=== PATIENT | female | born 1995 | race Two or more races ===

== ENCOUNTER 2020-02-23 06:28 | Inpatient (IN) | payer SELFPAY ==
[~2020-02-23] VITALS: Ht 157.5 cm; Wt 63.5 kg
[2020-02-23] MEDS ORDERED: IV RINGERS,LACTATED 1000ML 1,000 ML IV PRN (07:15)
[2020-02-23 07:20] LABS: BILIRUBIN,URINE NEGATIVE (NEG); CLARITY,URINE CLEAR; COLOR,URINE YELLOW; NITRITE,URINE NEGATIVE (NEG); PROTEIN,URINE NEGATIVE (NEG-TRACE)
[2020-02-23 07:25] LABS: BARBITURATES NEG (NEG); BENZODIAZEPINES NEG (NEG); CANNABINOIDS NEG (NEG); COCAINE NEG (NEG); METHADONE NEG (NEG); OPIATES NEG (NEG); PHENCYCLIDINE NEG (NEG)
[2020-02-23 07:40] VITALS: BP 102/63
[2020-02-23 07:40] LABS: AMPHETAMINE/METHAMPHETAMINE NEG (NEG)
[2020-02-23 07:55] LABS: BACTERIA,URINE FEW /HPF (0-FEW); SQUAMOUS EPITHELIAL CELL,UR MANY /LPF; WBC,URINE 20-40 /HPF (0-4)
[2020-02-23] MEDS ORDERED: TERBUTALINE 1 MG/ML VIAL. SQ PRN (08:30)
[2020-02-23] MEDS ORDERED: OXYTOCIN 30 UNIT/500 ML PREMIX 500 ML IV PRN ×3 (08:30→18:00)
[2020-02-23] MEDS ORDERED: LIDOCAINE 1% PF 30 ML VIAL. INJ PRN (08:30)
[2020-02-23] MEDS ORDERED: IBUPROFEN 400 MG TABLET. PO PRN (08:30)
[2020-02-23] MEDS ORDERED: 0.9 % SODIUM CHLORIDE 10 ML DISP.SYRIN. IV PRN ×2 (08:30→18:00)
[2020-02-23] MEDS: IV RINGERS,LACTATED 1000ML 1,000 ML IV SCH ×3 (08:32→22:09)
[2020-02-23 09:39] LABS: BASO % 0 % (0-3); EOS # 0.1 x10^3/uL (0.0-0.7); EOS % 1 % (0-3); HEMATOCRIT 32.1 % (36.0-47.0); HEMOGLOBIN 10.4 g/dL (12.0-15.5); LYMPH % 20 % (24-48); MEAN CORPUSCULAR HEMOGLOBIN 28 pg (25-35); MEAN CORPUSCULAR HGB CONC 33 g/dL (31-37); MEAN CORPUSCULAR VOLUME 85 fL (79-100); MONO # 0.7 x10^3/uL (0.0-1.1); MONO % 7 % (0-9); NEUT # 7.4 x10^3/uL (1.8-7.7); NEUT % 73 % (31-73); PLATELET COUNT 286 x10^3/uL (140-400); RED BLOOD COUNT 3.76 x10^6/uL (3.50-5.40); RED CELL DISTRIBUTION WIDTH 16.6 % (11.5-14.5); WHITE BLOOD COUNT 10.2 x10^3/uL (4.0-11.0)
--- NOTE | 2020-02-23 09:43 | PDOC1 ---
OB - History Hx of Present Care: Good Care Ultrasounds: Normal mid trimester US Obstetrical Complications: None Medical Complications: None Past Family/Social History * Past Medical, Surgical, Family and Obstetric Histories reviewed from chart. Rubella: Immune RPR/VDRL: Negative GBS Status: Negative HBsAG: Negative OB - Chief Complaint & HPI Date of Admission: Date of Admission: February 23, 2020 at 06:28 Chief Complaint/History : 2 Para: 1 EGA: 41 Reason for admission: active labor Admission Nurse Assessment Rev: Yes OB - Admission Exam Physical Exam Vitals: VS - Last 72 Hours, by Label Date Time Temp Pulse Resp B/P (MAP) Pulse Ox O2 Delivery O2 Flow Rate FiO2 02/23/20 07:40 98.8 75 18 102/63 (76) 98 98.8 HEENT: Normal Heart: Regular Rate Lungs: Clear Abdomen: Gravid, Non tender, Soft Extremities: Edema Reflexes: Normal Cervical Dilatation: 5cm Effacement: 75% Station: -2 Membranes: Intact Heart Rate: Normal Accelerations: Accelerations Present Decelerations: No decelerations Contractions on Admission: < 5 Minutes Apart Intensity: Moderate Text A: 41 wks IUP Active labor P: Admit labor management. LYNDSEY BURDICK Jr, MD February 23, 2020 09:43
[2020-02-23] MEDS: fentaNYL PF VIAL 100 MCG/2 ML VIAL IVP PRN ×2 (11:22→16:26)
[2020-02-23] MEDS ORDERED: CITRIC ACID/SODIUM CITRATE 30 ML SOLUTION. PO ONE (16:45)
[2020-02-23] MEDS ORDERED: fentaNYL PF VIAL 100 MCG/2 ML VIAL ONE ×2 (16:47→17:29)
[2020-02-23] MEDS ORDERED: ONDANSETRON PF 4 MG/2 ML VIAL. ONE (16:47)
[2020-02-23] MEDS ORDERED: OXYTOCIN 10 UNIT/ML VIAL. ONE ×5 (16:47→17:37)
[2020-02-23] MEDS ORDERED: DEXAMETHASONE SOD PHOS 4 MG/ML VIAL ONE (16:47)
[2020-02-23] MEDS ORDERED: ePHEDrine PF IN SALINE 50 MG/10 ML SYRINGE. IV ONE (16:48)
[2020-02-23] MEDS ORDERED: KETOROLAC 30 MG/ML VIAL. IV PRN ×2 (17:15→18:00)
[2020-02-23] MEDS ORDERED: PHENYLEPHRINE in 0.9% NACL PF 1 MG/10 ML SYRINGE. IV ONE (17:28)
--- NOTE | 2020-02-23 17:58 | PDOC4 ---
OB Operative Note Date: February 23, 2020 PRE OP DIAGNOSIS: NRFHT POST OP DIAGNOSIS: NRFHT OPERATION PERFORMED: L [facility] Surgeon Dr. Knutson Anesthesia: Gen Blood Loss 700 ml Specimen placenta and OB Findings: Position (Vertex), Sex (Female), (8/9), Weight (7 Lb 11 oz), Nuchal Cord (x1) Complications none Additional Remarks pt. LYNDSEY Pedraza Jr, MD February 23, 2020 17:58
[2020-02-23] MEDS: IV NORMAL SALINE 1000ML BAG 1,000 ML IV SCH (17:59)
[2020-02-23] MEDS ORDERED: diphenhydrAMINE ORAL ELIXIR 12.5 MG/5 ML ML PO PRN (18:00)
[2020-02-23] MEDS ORDERED: oxyCODONE/APAP 5/325 1 TAB TABLET PO PRN (18:00)
[2020-02-23] MEDS ORDERED: NALOXONE 0.4 MG/ML VIAL. IV PRN (18:00)
[2020-02-23] MEDS ORDERED: ZOLPIDEM 5 MG TABLET. PO PRN (18:00)
[2020-02-23] MEDS ORDERED: SIMETHICONE 80 MG TAB.CHEW PO PRN (18:00)
[2020-02-23] MEDS ORDERED: MAG HYDROX/ALUMINUM HYD/SIMETH 30 ML ORAL.SUSP PO PRN (18:00)
[2020-02-23] MEDS ORDERED: ONDANSETRON PF 4 MG/2 ML VIAL. IV PRN (18:00)
--- NOTE | 2020-02-23 18:49 | OP ---
DATE OF SURGERY: 02/23/2020 PREOPERATIVE DIAGNOSES: 1. A 41 weeks' intrauterine . 2. intolerance to labor. POSTOPERATIVE DIAGNOSES: 1. A 41 weeks' intrauterine . 2. intolerance to labor. PROCEDURE: Primary low transverse section. SURGEON: Lyndsey Knutson M.D. ANESTHESIA: GETA. ESTIMATED BLOOD LOSS: 700 mL. COMPLICATIONS: None. FINDINGS: Viable female infant, Apgars 8 and 9, weight 7 pounds 11 ounces, nuchal x 1. SUMMARY: This 24-year-old 2, para 1 at 41 weeks presented for active labor. The patient dilated up to 8 cm, then began having intolerance of labor and required emergency . She was counseled on the risks, benefits, and expectations and voiced clear understanding to proceed. DESCRIPTION OF PROCEDURE: The patient was taken to surgery suite and placed in dorsal supine position. She was prepped with ChloraPrep and draped in a sterile fashion. After adequate anesthesia, a Pfannenstiel skin incision was made with scalpel down to and through the fascia. Fascia was extended laterally using curved Huber scissors. The superior edge of fascia was grasped with two Alicia clamps and dissected free of the abdominal rectus muscle using a blunt dissection along with Bovie cautery. The same process took place inferiorly. Abdominal rectus muscle dissected bluntly at the midline. Peritoneum was grasped with 2 hemostats and entered sharply with Metzenbaum scissors. This incision was extended superiorly as well as inferiorly. The Regino ring retractor was placed. A low transverse hysterotomy incision was made with scalpel down to the . Hysterotomy incision was extended laterally and superiorly digitally. With the aid of fundal pressure, the 's head was delivered in a smooth atraumatic manner. Nuchal cord x 1 was visualized and reduced. With additional fundal pressure, the anterior shoulder was delivered followed by posterior shoulder. The rest of the female was delivered. The was suctioned with a bulb syringe orally and nasally, umbilical cord was clamped twice and cut. Viable female was handed to waiting nursing staff. Umbilical cord blood was then obtained. Three-vessel cord placenta was delivered manually intact. The uterus was then cleared of clot and debris with a moist lap. Hysterotomy incision was reapproximated using #1 Vicryl suture in running locked fashion. The imbricated layer was performed using #1 Vicryl suture in a running fashion. Three [id number] sutures were placed along the hysterotomy incision for better hemostasis. The uterus was palpated firm. Fallopian tubes and ovaries appeared normal bilaterally. Posterior cul-de-sac was cleared of clot and debris with a moist lap. Uterus was then returned to the abdomen. The pericolic gutters were cleared of clot and debris with a moist lap. Hysterotomy incision was reviewed and was hemostatic. The Regino ring retractor was removed. The peritoneum was reapproximated using #1 Vicryl suture in a running fashion. The abdominal rectus muscles were reapproximated using #1 Vicryl suture in an interrupted fashion. The fascia was reapproximated using 0 Vicryl suture in a running fashion. Skin was reapproximated using 4-0 Vicryl suture in a subcuticular manner. The patient tolerated the procedure well and was taken to recovery room in stable condition. Sponge and needle count correct x 3. LYNDSEY KNUTSON MD DR: ZIYAD/saroj JOB#: [id number] / [id number]
[2020-02-23 21:50] VITALS: BP 106/73
[2020-02-24 03:30] VITALS: BP 97/63
[2020-02-24 04:56] LABS: BASO % 0 % (0-3); EOS % 0 % (0-3); HEMATOCRIT 23.8 % (36.0-47.0); HEMOGLOBIN 7.7 g/dL (12.0-15.5); LYMPH # 1.7 x10^3/uL (1.0-4.8); LYMPH % 10 % (24-48); MEAN CORPUSCULAR HEMOGLOBIN 27 pg (25-35); MEAN CORPUSCULAR HGB CONC 32 g/dL (31-37); MEAN CORPUSCULAR VOLUME 85 fL (79-100); MONO % 6 % (0-9); NEUT # 14.4 x10^3/uL (1.8-7.7); NEUT % 85 % (31-73); PLATELET COUNT 226 x10^3/uL (140-400); RED BLOOD COUNT 2.81 x10^6/uL (3.50-5.40); RED CELL DISTRIBUTION WIDTH 16.7 % (11.5-14.5); WHITE BLOOD COUNT 17.1 x10^3/uL (4.0-11.0)
[2020-02-24] MEDS: IV RINGERS,LACTATED 1000ML 1,000 ML IV SCH ×2 (06:06→16:23)
[2020-02-24 06:24] LABS: % BANDS 6 % (0-9); % LYMPHS 6 % (24-48); % MONOS 3 % (0-10); % SEGS 85 % (35-66); PLT ESTIMATE ADEQUATE (ADEQUATE); TOXIC VACUOLATION SLIGHT
[2020-02-24] MEDS: FERROUS SULFATE 325 MG TABLET. PO SCH ×2 (08:54→18:44)
[2020-02-24] MEDS: IBUPROFEN 400 MG TABLET. PO PRN ×2 (08:54→19:35)
[2020-02-24] MEDS: DOCUSATE SODIUM 100 MG CAPSULE. PO PRN (08:54)
[2020-02-24] MEDS ORDERED: MULTIVITAMIN with MINERAL TABLET. PO SCH (09:00)
[2020-02-24 09:08] VITALS: BP 98/67
--- NOTE | 2020-02-24 16:26 | PDOC ---
OB Progress Note Date of Service 02/24/20 Time of Evaluation 1620 Notes Pt. feeling well. No complaints. Pain controlled. Lab Laboratory Tests Test 02/23/20 07:05 02/23/20 08:40 02/24/20 04:25 Urine Collection Type Unknown Urine Color Yellow Urine Clarity Clear Urine pH 7.0 (<5.0-8.0) Urine Specific [place] 1.015 (1.000-1.030) Urine Protein Negative mg/dL (NEG-TRACE) Urine Glucose (UA) Negative mg/dL (NEG) Urine Ketones (Stick) Negative mg/dL (NEG) Urine Blood Moderate (NEG) Urine Nitrite Negative (NEG) Urine Bilirubin Negative (NEG) Urine Urobilinogen Dipstick 1.0 mg/dL (0.2 mg/dL) Urine Leukocyte Esterase Moderate (NEG) Urine RBC 3-5 /HPF (0-2) Urine WBC 20-40 /HPF (0-4) Urine Squamous Epithelial Cells Many /LPF Urine Bacteria Few /HPF (0-FEW) Urine Opiates Screen Neg (NEG) Urine Methadone Screen Neg (NEG) Urine Barbiturates Neg (NEG) Urine Phencyclidine Screen Neg (NEG) Urine Amphetamine/Methamphetamine Neg (NEG) Urine Benzodiazepines Screen Neg (NEG) Urine Cocaine Screen Neg (NEG) Urine Cannabinoids Screen Neg (NEG) Urine Ethyl Alcohol Neg (NEG) White Blood Count 10.2 x10^3/uL (4.0-11.0) 17.1 x10^3/uL (4.0-11.0) Red Blood Count 3.76 x10^6/uL (3.50-5.40) 2.81 x10^6/uL (3.50-5.40) Hemoglobin 10.4 g/dL (12.0-15.5) 7.7 g/dL (12.0-15.5) Hematocrit 32.1 % (36.0-47.0) 23.8 % (36.0-47.0) Mean Corpuscular Volume 85 fL (79-100) 85 fL (79-100) Mean Corpuscular Hemoglobin 28 pg (25-35) 27 pg (25-35) Mean Corpuscular Hemoglobin Concent 33 g/dL (31-37) 32 g/dL (31-37) Red Cell Distribution Width 16.6 % (11.5-14.5) 16.7 % (11.5-14.5) Platelet Count 286 x10^3/uL (140-400) 226 x10^3/uL (140-400) Neutrophils (%) (Auto) 73 % (31-73) 85 % (31-73) Lymphocytes (%) (Auto) 20 % (24-48) 10 % (24-48) Monocytes (%) (Auto) 7 % (0-9) 6 % (0-9) Eosinophils (%) (Auto) 1 % (0-3) 0 % (0-3) Basophils (%) (Auto) 0 % (0-3) 0 % (0-3) Neutrophils # (Auto) 7.4 x10^3/uL (1.8-7.7) 14.4 x10^3/uL (1.8-7.7) Lymphocytes # (Auto) 2.0 x10^3/uL (1.0-4.8) 1.7 x10^3/uL (1.0-4.8) Monocytes # (Auto) 0.7 x10^3/uL (0.0-1.1) 1.0 x10^3/uL (0.0-1.1) Eosinophils # (Auto) 0.1 x10^3/uL (0.0-0.7) 0.0 x10^3/uL (0.0-0.7) Basophils # (Auto) 0.0 x10^3/uL (0.0-0.2) 0.0 x10^3/uL (0.0-0.2) Segmented Neutrophils % 85 % (35-66) Band Neutrophils % 6 % (0-9) Lymphocytes % 6 % (24-48) Monocytes % 3 % (0-10) Toxic Vacuolation Slight Platelet Estimate Adequate (ADEQUATE) Laboratory Tests Test 02/24/20 04:25 White Blood Count 17.1 x10^3/uL (4.0-11.0) Red Blood Count 2.81 x10^6/uL (3.50-5.40) Hemoglobin 7.7 g/dL (12.0-15.5) Hematocrit 23.8 % (36.0-47.0) Mean Corpuscular Volume 85 fL (79-100) Mean Corpuscular Hemoglobin 27 pg (25-35) Mean Corpuscular Hemoglobin Concent 32 g/dL (31-37) Red Cell Distribution Width 16.7 % (11.5-14.5) Platelet Count 226 x10^3/uL (140-400) Neutrophils (%) (Auto) 85 % (31-73) Lymphocytes (%) (Auto) 10 % (24-48) Monocytes (%) (Auto) 6 % (0-9) Eosinophils (%) (Auto) 0 % (0-3) Basophils (%) (Auto) 0 % (0-3) Neutrophils # (Auto) 14.4 x10^3/uL (1.8-7.7) Lymphocytes # (Auto) 1.7 x10^3/uL (1.0-4.8) Monocytes # (Auto) 1.0 x10^3/uL (0.0-1.1) Eosinophils # (Auto) 0.0 x10^3/uL (0.0-0.7) Basophils # (Auto) 0.0 x10^3/uL (0.0-0.2) Segmented Neutrophils % 85 % (35-66) Band Neutrophils % 6 % (0-9) Lymphocytes % 6 % (24-48) Monocytes % 3 % (0-10) Toxic Vacuolation Slight Platelet Estimate Adequate (ADEQUATE) Medications Current Medications Ringer's Solution 1,000 ml @ 125 mls/hr Q8H PRN IV hydration; Start 02/23/20 at 07:15 Sodium Chloride (Normal Saline Flush) 3 ml QSHIFT PRN IV AFTER MEDS AND BLOOD DRAWS; Start 02/23/20 at 08:30; Stop 02/23/20 at 18:18; Status DC Ringer's Solution 1,000 ml @ 125 mls/hr Q8H IV Last administered on 02/24/20at 06:06; Start 02/23/20 at 08:23 Terbutaline Sulfate (Brethine) 0.25 mg 1X PRN PRN SQ SEE COMMENTS; Start 02/23/20 at 08:30; Stop 02/24/20 at 08:29; Status DC Lidocaine HCl (Xylocaine 1% Pf 30ml Vial) 30 ml 1X PRN PRN INJ SEE COMMENTS; Start 02/23/20 at 08:30; Stop 02/25/20 at 08:29 Oxytocin/Sodium Chloride 500 ml @ 0 mls/hr CONT PRN IV SEE I/O RECORD Last administered on 02/23/20at 09:31; Start 02/23/20 at 08:30 Oxytocin/Sodium Chloride 500 ml @ 0 mls/hr CONT PRN PRN IV Post delivery bleeding; Start 02/23/20 at 08:30 Ibuprofen (Motrin) 800 mg PRN Q6HRS PRN PO INFLAMMATION; Start 02/23/20 at 08: 30; Stop 02/23/20 at 18:18; Status DC Fentanyl Citrate (Fentanyl 2ml Vial) 100 mcg PRN Q20MIN PRN IVP Labor pain Last administered on 02/23/20at 16:26; Start 02/23/20 at 11:15 Cefazolin Sodium/ Dextrose 50 ml @ 100 mls/hr 1X ONCE IV Last administered on 02/23/20at 16:53; Start 02/23/20 at 16:45; Stop 02/23/20 at 17:14; Status DC Citric Acid/ Sodium Citrate (Bicitra) 30 ml 1X ONCE PO Last administered on 02/23/20at 16:46; Start 02/23/20 at 16:45; Stop 02/23/20 at 16:49; Status DC Dexamethasone Sodium Phosphate (Decadron) 4 mg STK-MED ONCE .ROUTE ; Start 02/23/20 at 16:47; Stop 02/23/20 at 16:47; Status DC Ondansetron HCl (Zofran) 4 mg STK-MED ONCE .ROUTE ; Start 02/23/20 at 16:47; Stop 02/23/20 at 16:47; Status DC Fentanyl Citrate (Fentanyl 2ml Vial) 100 mcg STK-MED ONCE .ROUTE ; Start 02/23/20 at 16:47; Stop 02/23/20 at 16:47; Status DC Oxytocin (Pitocin) 10 unit STK-MED ONCE .ROUTE ; Start 02/23/20 at 16:47; Stop 02/23/20 at 16:48; Status DC Oxytocin (Pitocin) 10 unit STK-MED ONCE .ROUTE ; Start 02/23/20 at 16:47; Stop 02/23/20 at 16:48; Status DC Oxytocin (Pitocin) 10 unit STK-MED ONCE .ROUTE ; Start 02/23/20 at 16:47; Stop 02/23/20 at 16:48; Status DC Ephedrine Sulfate (ePHEDrine PF IN SALINE SYRINGE) 50 mg STK-MED ONCE IV ; Start 02/23/20 at 16:48; Stop 02/23/20 at 16:49; Status DC Ketorolac Tromethamine (Toradol 30mg Vial) 30 mg PRN Q6HRS PRN IV PAIN; Start 02/23/20 at 17:15; Stop 02/23/20 at 18:19; Status DC Phenylephrine HCl (PHENYLEPHRINE in 0.9% NACL PF) 1 mg STK-MED ONCE IV ; Start 02/23/20 at 17:28; Stop 02/23/20 at 17:29; Status DC Fentanyl Citrate (Fentanyl 2ml Vial) 100 mcg STK-MED ONCE .ROUTE ; Start 02/23/20 at 17:29; Stop 02/23/20 at 17:29; Status DC Oxytocin (Pitocin) 10 unit STK-MED ONCE .ROUTE ; Start 02/23/20 at 17:37; Stop 02/23/20 at 17:37; Status DC Oxytocin (Pitocin) 10 unit STK-MED ONCE .ROUTE ; Start 02/23/20 at 17:37; Stop 02/23/20 at 17:37; Status DC Sodium Chloride (Normal Saline Flush) 3 ml QSHIFT PRN IV AFTER MEDS AND BLOOD DRAWS; Start 02/23/20 at 18:00 Oxytocin/Sodium Chloride 500 ml @ 125 mls/hr CONT PRN IV EXCESSIVE POST- BLEEDING; Start 02/23/20 at 18:00; Stop 02/24/20 at 01:59; Status DC Ibuprofen (Motrin) 800 mg PRN Q8HRS PRN PO INFLAMMATION Last administered on 02/24/20at 08:54; Start 02/23/20 at 18:00 Ondansetron HCl (Zofran) 4 mg PRN Q6HRS PRN IV NAUSEA/VOMITING; Start 02/23/20 at 18:00 Docusate Sodium (Colace) 100 mg PRN BID PRN PO CONSTIPATION Last administered on 02/24/20at 08:54; Start 02/23/20 at 18:00 Al Hydroxide/Mg Hydroxide (Mylanta Plus Xs) 30 ml PRN Q4HRS PRN PO HEARTBURN / GAS; Start 02/23/20 at 18:00 Simethicone (Gas-X) 80 mg PRN AFTMEALHC PRN PO GAS / BLOATING; Start 02/23/20 at 18:00 Diphenhydramine HCl (Benadryl Oral Elixir) 12.5 mg PRN Q6HRS PRN PO ITCHING; Start 02/23/20 at 18:00 Ferrous Sulfate (Feosol) 325 mg BIDWMEALS PO Last administered on 02/24/20at 08:54; Start 02/24/20 at 08:00 Zolpidem Tartrate (Ambien) 5 mg PRN QHS PRN PO INSOMNIA, MAY REPEAT X1; Start 02/23/20 at 18:00 Oxycodone/ Acetaminophen (Percocet 5/325) 2 tab PRN Q4HRS PRN PO MODERATE PAIN, SEVERE PAIN Last administered on 02/24/20at 08:55; Start 02/23/20 at 18:00 Ketorolac Tromethamine (Toradol 30mg Vial) 30 mg PRN Q6HRS PRN IV PAIN; Start 02/23/20 at 18:00; Stop 02/28/20 at 17:59 Multivitamins (Thera M Plus) 1 tab DAILY PO Last administered on 02/24/20at 0 8:54; Start 02/24/20 at 09:00 Fentanyl Citrate 30 ml @ 0 mls/hr CONT PRN PRN IV PER PROTOCOL Last administered on 02/23/20at 18:49; Start 02/23/20 at 18:00 Naloxone HCl (Narcan) 0.4 mg PRN Q2MIN PRN IV SEE INSTRUCTIONS; Start 02/23/20 at 18:00 Sodium Chloride 1,000 ml @ 25 mls/hr Q24H IV ; Start 02/23/20 at 17:59 Exam Abd:soft, mild tenderness, fundus firm Incision site: clean, dry and intact Assessment POD#1 s/p c/s Plan of Care: Continue current Floyd, LYNDSEY Kenyon Jr, MD February 24, 2020 16:26
[2020-02-24] MEDS: IV NORMAL SALINE 1000ML BAG 1,000 ML IV SCH (17:59)
[2020-02-24 18:50] VITALS: BP 97/65
[2020-02-24 23:26] VITALS: BP 95/54
[2020-02-25] MEDS: IV RINGERS,LACTATED 1000ML 1,000 ML IV SCH (00:23)
[2020-02-25] MEDS: DOCUSATE SODIUM 100 MG CAPSULE. PO PRN ×2 (05:47→08:22)
[2020-02-25] MEDS: IBUPROFEN 400 MG TABLET. PO PRN (05:47)
--- NOTE | 2020-02-25 08:16 | PDOC3 ---
OB DISCHARGE SUMMARY DATE OF ADMISSION: 02/23/20 DATE OF DISCHARGE: 02/25/20 REASON FOR ADMISSION: Onset of labor INTRAPARTUM PROCEDURES: : Low Cerv Trans DISCHARGE DIAGNOSIS: Term Delivered DISCHARGE INFORMATION: Activity (ad jeaneth), Diet (regular), Instructions (pelvic rest x 6 wks) HOSPITAL COURSE Term gestation delivered via section due to intolerance to labor without complications. LYNDSEY BURDICK Jr, MD February 25, 2020 08:16
[2020-02-25] MEDS ORDERED: IBUP-1027 PO (08:18)
[2020-02-25] MEDS ORDERED: DOCU-153 PO (08:18)
[2020-02-25] MEDS ORDERED: OXYC1TAB15 PO (08:18)
--- NOTE | 2020-02-25 08:19 | DISCH ---
DISCHARGE INSTRUCTIONS Condition on Discharge Condition on Discharge: Stable Activity After Discharge Activity Instructions for Disc: Activity as tolerated Lifting Instructions after Dis: No heavy lifting Driving Instructions after Dis: No driving for 2 weeks Diet after Discharge Diet after Discharge: Regular Contacting the DRKimberley after DC Call your doctor for: Concerns you may have Follow-Up Follow up with: Dr. Knutson in 2 wks LYNDSEY KNUTSON Jr, MD February 25, 2020 08:19
[2020-02-25] MEDS: FERROUS SULFATE 325 MG TABLET. PO SCH (08:22)
[2020-02-25 12:52] VITALS: BP 98/66
--- NOTE | 2020-02-25 12:54 | NUR ---
home instructions gone over with pt and her no questions at this time
== END 2020-02-25 14:31 | disposition home or self-care (01) | DRG 788 ==
LOC: 3 SO LND 06:28 → OBSVTOIN 07:05 → 3 NORTH 21:15
PROVIDERS: ADMIT Obstetrics & Gynecology; ATTEND Obstetrics & Gynecology
PROC: 10D00Z1 Extraction of Products of Conception, Low, Open Approach (ICD-10-PCS; principal; 2020-02-23)
DX: O77.9 Labor and delivery complicated by fetal stress, unspecified (principal); O69.81X0 Labor and delivery complicated by cord around neck, without compression, not applicable or unspecified; Z3A.41 41 weeks gestation of pregnancy; Z37.0 Single live birth
CPT/HCPCS: 36415; 80307; 81001; 85007; 85025; 86850; 86900; 86901; 87086; A7015; G0379; J0696; J1100; J2370; J2405; J2590; J3010; J3490; J7120; G0378